=== PATIENT | female | born 1980 | race Caucasian/White ===

== ENCOUNTER 2017-05-14 14:21 | Emergency (ER) | payer OTHER ==
[~2017-05-14] VITALS: Ht 154.9 cm; Wt 52.6 kg
[~2017-05-14 14:21] MED LIST: AMBIEN PO; AZITHROMYCIN250 MG PO; BENZONATATE; DIAZEPAM PO; FLEXERIL10 MG PO; FLOMAX0.4 M1 PO; GABAPENTIN800 MG PO; HYDROCODON-ACE1 EACH PO; LORTAB 5/500 TA1 TA1 PO; PERCOCET 51 UDTAB 5/ PO; PERCOCET5/325 PO; PHENERGAN25 MG PO; TAMIFLU75 M1 PO; VICODIN 5/500 T1 TAB PO; ZITHROMAX
[2017-05-15 21:34] LABS: CHLAMYDIA TRACH Not Detected (Not Detected); N GONOR Not Detected (Not Detected)
== END 2017-05-14 17:57 | disposition home or self-care (01) ==
LOC: SED 14:21
PROVIDERS: Physician Assistant
DX: B00.1 Herpesviral vesicular dermatitis (principal); L73.9 Follicular disorder, unspecified; F41.9 Anxiety disorder, unspecified; F17.200 Nicotine dependence, unspecified, uncomplicated; Z90.49 Acquired absence of other specified parts of digestive tract; Z98.51 Tubal ligation status; Z88.8 Allergy status to other drugs, medicaments and biological substances
CPT/HCPCS: 87210; 87491; 87591; 87808; 87905; 99283

== ENCOUNTER 2017-05-18 10:14 | Emergency (ER) | payer OTHER ==
[~2017-05-18] VITALS: Ht 154.9 cm; Wt 49.9 kg
== END 2017-05-18 12:00 | disposition home or self-care (01) ==
LOC: SED 10:14
DX: R21 Rash and other nonspecific skin eruption (principal); F41.9 Anxiety disorder, unspecified; F17.210 Nicotine dependence, cigarettes, uncomplicated; Z88.8 Allergy status to other drugs, medicaments and biological substances; Z88.6 Allergy status to analgesic agent
CPT/HCPCS: 99282